=== PATIENT | female | born 1960 | race Caucasian/White ===

== ENCOUNTER 2019-12-07 07:16 | Emergency (ER) | payer BC, SELFPAY ==
[2019-12-07] VITALS (39 sets, daily range): BP systolic 134–155; BP diastolic 65–85; PULSE 51–80; RESP 11–31; TEMP 36.6; O2SAT 96–100
--- NOTE | 2019-12-07 07:35 | ED.ABDPAIN ---
HPI - Abdominal Pain General Chief Complaint: Abdominal Pain Stated Complaint: RUQ/back pain h/o gallbladder issues Time Seen by Provider: 12/07/19 07:26 History of Present Illness HPI narrative: RUQ pain since last night. Radiates to the back. Moderate intensity. Associated with nausea and loose stool. Started after eating a heavy meal. She has had similar symptoms in the past due to cholelithiasis going back to at least 2013. She was here in most recently in June 2019 for the same and has not followed up. At that time she was given zofran and toradol with improvement of her symptoms. Related Data Allergies Allergy/AdvReac Type Severity Reaction Status Date / Time Penicillins Allergy Unknown Rash Verified 12/07/19 07:24 venom-wasp Allergy Unknown Swelling Verified 12/07/19 07:24 Review of Systems Review of Systems: All systems reviewed & are unremarkable except as noted in HPI and below Constitutional: Constitutional: Denies chills and Denies fever(s) Cardiovascular: Cardiovascular: Denies chest pain Respiratory: Respiratory: Denies dyspnea Gastrointestinal: Gastrointestinal: Reports abdominal pain, Reports diarrhea and Reports nausea Genitourinary: Genitourinary: Denies hematuria and Denies dysuria Musculoskeletal: Musculoskeletal: Reports back pain PMFSH Family History Family History Mother Hypertension Family history of thyroid disease Sibling Hypertension Grandparent Family history of malignant neoplasm of breast Family history of pulmonary embolism Family history of malignant neoplasm of uterus Family history of dementia Family history of malignant neoplasm of breast in first degree relative Family history of heart disease in male family member before age 55 Father Hypertension Other Asthma Family history of arthritis Family history of cardiovascular disease Family history of lung cancer Social History Social History Smoking status: Former smoker Second hand tobacco smoke exposure: No Smoking end date: 07/10/87 Alcohol intake: current Gender identity (if verbalized by the patient): Female Exam Const: General: no acute distress and alert Nutritional Appearance: obese Orientation/consciousness: patient oriented x3 HENMT: Head: normal to inspection Resp: Effort & Inspection: normal respiratory effort Auscultation: clear to auscultation bilaterally Cardio: Rate: regular rate Rhythm: regular rhythm GI: Inspection: non-distended GI Palp: Yes Soft to palpation, Yes Tenderness to palpation present (GI) (minimal RUQ), No Guarding due to palpation present (GI) and No Rebound tenderness present Auscultation: normal bowel sounds Skin: General skin exam: normal color Neuro: General: patient oriented x3, moves all extremities, no focal motor deficits and CN's II-XI intact bilaterally Speech: normal speech Extrem: General: normal to inspection Course Vital Signs Vital signs: Vital Signs Temperature 36.6 C 12/07/19 07:21 Pulse Rate 63 12/07/19 07:21 Respiratory Rate 18 12/07/19 07:21 Blood Pressure 152/78 H 12/07/19 07:21 Pulse Oximetry 100 12/07/19 07:21 Temperature 36.6 C 12/07/19 07:21 Pulse Rate 51 L 12/07/19 09:31 Respiratory Rate 18 12/07/19 09:31 Blood Pressure 138/68 12/07/19 09:31 Pulse Oximetry 99 12/07/19 09:31 MDM - Abdominal Pain MDM Narrative Medical decision making narrative: minimally elevated WBC count. I do not suspect acute cholecystitis. Labs otherwise reassuring. Feeling better after toradol and zofran. Differential Diagnosis Differential diagnosis: Likely calculus of kidney, pancreatitis and other (biliary colic) Medical Records Attestation: I reviewed the patient's medical records. Lab Data Attestation: I reviewed the patient's lab results. Result diagrams: 12/07/19 07:39 12/06
--- NOTE | 2019-12-07 07:38 | PC.NURSE ---
Pt states since 0100 she has RUQ abd pain that radiates to her back. Pt states she is nauseated and took zofran ODT without relief. Pt states she has hx of gallstones. Pt states she took tylenol 500mg without relief. Pt restless due to pain. Pt has call light in reach.
[2019-12-07 07:49] LABS: Basophils Absolute Auto 0.1 K/mm3 (0.0-0.1); Basophils Percent Auto 0.5 % (0.2-1.2); Eosinophils Percent Auto 0.1 % (0-4.4); Hematocrit 41.5 % (37.0-47.0); Hemoglobin 14.3 g/dL (12.0-15.0); Immature Granulocyte Absolute 0.06 K/mm3 (0.00-0.031); Immature Granulocyte Percent A 0.6 % (0-0.5); Lymphocytes Absolute Auto 0.92 K/mm3 (0.9-3.2); Lymphocytes Percent Auto 8.6 % (18.3-44.2); Mean Corpuscular HGB Conc 34.5 g/dl (32-36); Mean Corpuscular Hemoglobin 30.4 pg (26-34); Mean Corpuscular Volume 88.3 fl (80-100); Mean Platelet Volume 9.4 fl (7.4-10.4); Monocytes Absolute Auto 0.3 K/mm3 (0.1-0.6); Monocytes Percent Auto 2.6 % (2.6-8.5); Neutrophils Absolute Auto 9.3 K/mm3 (1.3-6.7); Neutrophils Percent Auto 87.6 % (45.5-73.1); Platelet Count Result 246 k/mm3 (150-375); Red Cell Distribution Width 11.3 % (11.5-14.5); White Blood Count 10.7 K/mm3 (4.5-10.0)
[2019-12-07 08:02] LABS: Alanine Aminotransferase 13 U/L (4-35); Albumin Level 4.6 g/dL (3.5-5.1); Alkaline Phosphatase 90 U/L (38-126); Aspartate Amino Transferase 29 U/L (14-36); Bilirubin,Total 0.3 mg/dL (0.2-1.3); Blood Urea Nitrogen 11 mg/dL (7-17); Carbon Dioxide 30 mmol/L (22-30); Chloride 98 mmol/L (98-107); Estimated CRCL calculation 85 ml/min; Estimated Glomerular Filt Rate > 60; Glucose 131 mg/dL (65-105); Lipase 60 U/L (23-300); Potassium 3.7 mmol/L (3.4-5.0); Sodium 134 mmol/L (137-145)
[2019-12-07 08:20] LABS: Add Urine Microscopic? YES; Amorphous Sediment Urine Heavy; Appearance Urine Turbid (Clear); Bilirubin Urine Negative (Negative); Blood Urine Negative (Negative); Color Urine Yellow (Yellow); Glucose Urine UA Negative (Negative); Ketones Urine Negative (Negative); Leukocyte Esterase Ur Negative LEU/UL (Negative); Mucus Urine Heavy /lpf; Nitrate Urine Negative (Negative); Protein Urine Negative (Negative); Specific Grav Ur 1.025 (1.001-1.035); Urobilinogen Urine Negative mg/dL (<2.0)
[2019-12-07] MEDS: ONDANSETRON INJ 4 MG/2 ML VIAL IV PUSH (08:24)
[2019-12-07] MEDS: KETOROLAC 30 MG/ML VIAL (*BKC) IV PUSH (08:25)
== END 2019-12-07 09:53 | disposition home or self-care (01) ==
PROVIDERS: Emergency Provider Emergency Medicine; PCP Internal Medicine
DX: K80.50 Calculus of bile duct without cholangitis or cholecystitis without obstruction (principal); Z87.891 Personal history of nicotine dependence
CPT/HCPCS: 36415; 80053; 81001; 81025; 83690; 85025; 96374; 96375; 99284; J1885; J2405

== ENCOUNTER → 2020-01-02 08:48 | Outpatient (CLI) | payer BC, SELFPAY ==
--- NOTE | ~2020-01-02 | US_ITS ---
EXAMINATION: US right upper quadrant EXAM DATE: 01/02/2020 09:19 INDICATION: Right quadrant pain, history of gallstones. TECHNIQUE: Multiple grayscale and Doppler images of the abdomen right upper quadrant were obtained (b y a technologist who performed the scan) and subsequently reviewed. Comparison is made to prior exami nation from 06/09/2019. FINDINGS: The pancreatic head and body are normal in appearance. The pancreatic tail is not visualized. The l iver has normal echogenicity and contour. There are no focal liver lesions identified. There is no evidence of intrahepatic biliary duct dilation. Portal venous flow was seen in the hepatopedal, nor mal direction and has normal Doppler waveform. There is cystic right renal lesion measures 7.7 x 5.0 x 6.6 cm, several internal septations suspected. This had no suspicious characteristics on CT scan f rom last year. Common bile duct measures 5 mm, which is normal. The gallbladder wall is normal in thickness, with ex pected amount of distention. No sonographic evidence of pericholecystic fluid. There is cholelithia sis. Technologist performing exam reports patient did not demonstrate sonographic Trujillo's sign. P lease note that this sign is less reliable in patients who have received pain medication. IMPRESSION: 1. Cholelithiasis. 2. Right renal cystic lesion, likely benign. Reviewed, dictated and finalized at location [facility].
== END ==
PROVIDERS: PCP Internal Medicine; Visit Provider Internal Medicine Gastroenterology
DX: R10.11 Right upper quadrant pain (principal); K80.20 Calculus of gallbladder without cholecystitis without obstruction
CPT/HCPCS: 76705

== ENCOUNTER 2020-03-20 00:18 | Outpatient (CLI) | payer BC, SELFPAY ==
[2020-03-21 13:40] LABS: SARS-CoV-2 RNA PCR Negative
== END 2020-03-20 00:19 | disposition home or self-care (01) ==
LOC: ANHCOVIDDT 00:18
PROVIDERS: PCP Internal Medicine; Visit Provider Internal Medicine Gastroenterology
DX: Z01.812 Encounter for preprocedural laboratory examination (principal); Z20.828 Contact with and (suspected) exposure to other viral communicable diseases
CPT/HCPCS: 87635; C9803; U0003

== ENCOUNTER 2020-05-07 01:09 | Inpatient (IN) | payer BC, SELFPAY ==
[2020-05-07] VITALS (7 sets, daily range): BP systolic 114–166; BP diastolic 61–92; PULSE 60–80; RESP 14–18; TEMP 36.3–36.7; O2SAT 99–100; BMI 28.6
--- NOTE | ~2020-05-07 | CT_ITS ---
EXAMINATION: CT abdomen pelvis w con DATE: 05/07/2020 02:45 INDICATION: Right upper quadrant abdominal pain. Nausea, vomiting, diarrhea TECHNIQUE: Computed tomography (CT) of the abdomen and pelvis was performed with 100 cc Omnipaque 350 intravenous contrast. Automated exposure control and iterative reconstruction technique were employe d. Exam dose: 876.39 mGy-cm total exam DLP. COMPARISON: 01/02/2020 right upper quadrant abdominal ultrasound examination 02/18/2019 CT abdomen FINDINGS: The lung bases are clear. Normal heart size. No pericardial or pleural effusion. There are multiple hepatic and renal cysts, the largest hepatic cyst measuring up to 2.6 cm, the larg est renal cyst is situated on the right, measuring up to 5.3 cm. There is thickening of the gallbladder wall and mild pericholecystic fat stranding. There are numerou s gallstones. There is mild dilatation of the common bile duct up to 8 mm.. No solid space occupying mass lesion the liver is evident. The spleen, pancreas and adrenal glands ar e unremarkable. No solid renal space-occupying mass lesion is evident. No urinary tract calculus or h ydroureteronephrosis. Normal caliber of the abdominal aorta. No intraperitoneal or retroperitoneal or pelvic mass lesion or adenopathy or ascites. The uterus, adnexa and urinary bladder are unremarkable. No bowel obstruction, bowel wall thickening, pneumatosis or intraperitoneal free air. Normal appendix . Small fat-containing umbilical hernia. No suspicious osteolytic or osteoblastic lesions. There is moderate degenerative disc disease of the lumbar and lower cervical spine, most prominent at L4-5 and particularly L5-S1. IMPRESSION: Acute cholecystitis and cholelithiasis Hepatic and renal cysts Reviewed, dictated and finalized at Location [facility]. Reviewed, dictated and finalized at location A.
--- NOTE | ~2020-05-07 | XR_ITS ---
XR chest 2V DATE: 05/07/2020 03:04 INDICATION: Chest pain, epigastric pain TECHNIQUE: PA and lateral views COMPARISON: 11/06/2015 PA and lateral chest FINDINGS: Normal heart size. No hilar or mediastinal enlargement. No pulmonary infiltrate or consolid ation, pleural effusion or pulmonary vascular congestion or pneumothorax. IMPRESSION: No active cardiopulmonary disease Reviewed, dictated and finalized at location A.
--- NOTE | 2020-05-07 01:14 | ED.ABDPAIN ---
HPI - Abdominal Pain General Chief Complaint: Abdominal Pain Stated Complaint: gallbladder problems Time Seen by Provider: 05/07/20 01:12 Source: patient Mode of arrival: ambulatory Limitations: no limitations History of Present Illness HPI narrative: Patient is a 59-year-old female who presents for evaluation of abdominal pain. Patient reports a 4-day history of worsening, constant epigastric and right upper quadrant abdominal pain. Patient's pain radiates to her back. She reports associated nausea without vomiting. She denies fever or chills. She denies any upper chest pain, ulnar pain, jaw pain or diaphoresis. No shortness of breath. Patient reports that intermittently she has had a fluttering in her chest. She denies any current fluttery type sensation. She denies lower abdominal pain, dysuria or hematuria. Patient states that she was evaluated approximately 1 month ago at [facility] for gallbladder wall thickening, placed on IV antibiotics, but never had surgery. She has had numerous gallbladder attacks and has scheduled a consultation with a [facility] general surgeon for Monday, 05/11. Otherwise she has not established with any surgeons at this point. Pt states symptoms are worse with oral intake, but have improved since adhering to a low fat diet. However pain over past four days has been so severe that she chose to be evaluated. Related Data Allergies Allergy/AdvReac Type Severity Reaction Status Date / Time Penicillins Allergy Unknown Rash Verified 04/16/20 11:18 venom-wasp Allergy Unknown Swelling Verified 04/16/20 11:18 Review of Systems Review of Systems: Narrative: CONSTITUTIONAL: Denies fever, chills, or sweats. CARDIOVASCULAR: Reports lower chest pain, intermittent fluttering, none currently RESPIRATORY: Denies cough or dyspnea. GASTROINTESTINAL: Reports upper abdominal pain, nausea without vomiting GENITOURINARY: Denies dysuria or hematuria. SKIN: Denies rash or itching. MUSCULOSKELETAL: Denies back pain, joint pain, or myalgia. NEUROLOGIC: Denies headache, numbness, or weakness. [facility] Past Medical History Medical History (Updated 05/07/20 @ 04:09 by Filomena Oglesby MD) Gastroesophageal reflux disease Hepatic steatosis History of asthma History of depression History of hypertension Hx of cholelithiasis Hypercholesterolemia Non-compliance with treatment Sciatica associated with disorder of lumbar spine Surgical History Surgical History History of section History of tonsillectomy Family History Family History Mother Hypertension Family history of thyroid disease Sibling Hypertension Grandparent Family history of malignant neoplasm of breast Family history of pulmonary embolism Family history of malignant neoplasm of uterus Family history of dementia Family history of malignant neoplasm of breast in first degree relative Family history of heart disease in male family member before age 55 Father Hypertension Other Asthma Family history of arthritis Family history of cardiovascular disease Family history of lung cancer Social History Social History Smoking status: Never smoker Tobacco type: cigarettes Second hand tobacco smoke exposure: No Smoking end date: 07/10/87 Alcohol intake: current Substance use: current Substance use type: other Other substance usage details: CBD Chews Additional living arrangements comments: , Daughter Gender identity (if verbalized by the patient): Female Spiritual care concerns: No Exam Narrative: Exam Narrative: GENERAL: Awake, alert, conversant HEAD: Normocephalic, atraumatic. EYES: PERRLA and EOMI. ENT: Nares clear, no rhinorrhea or epistaxis. Mucous membranes moist. NECK: Supple. CHEST: No respiratory distress, breathing jewell
--- NOTE | 2020-05-07 01:50 | ECG_ITS ---
Measurements Intervals [place] Rate: 77 P: 58 AR: 170 QRS: 59 QRSD: 89 T: 44 QT: 386 QTc: 438 Interpretive Statements SINUS RHYTHM BORDERLINE ST ABNORMALITY- ANTERIOR LEADS BASELINE WANDER- V2-V3 BORDERLINE ECG Electronically Signed On 05-07-2020 7:13:33 CDT by Clinton Kinsey D.O.
[2020-05-07] MEDS: SODIUM CHLORIDE 0.9% IV 2,000 ML 999 ML IV CONT (02:06)
[2020-05-07] MEDS: ONDANSETRON INJ 4 MG/2 ML VIAL IV PUSH (02:08)
[2020-05-07] MEDS: MORPHINE SULFATE (*CRX) 4 MG/ML INJ IV PUSH ×3 (02:09→06:34)
[2020-05-07] MEDS: FAMOTIDINE 20 MG/2 ML VIAL IV PUSH (02:13)
[2020-05-07 02:30] LABS: Alanine Aminotransferase 15 U/L (4-35); Albumin Level 4.8 g/dL (3.5-5.1); Alkaline Phosphatase 79 U/L (38-126); Anion Gap 8 mmol/L (8-16); Aspartate Amino Transferase 33 U/L (14-36); Bilirubin,Total 0.8 mg/dL (0.2-1.3); Blood Urea Nitrogen 8 mg/dL (7-17); Calcium 10.6 mg/dL (8.4-10.2); Carbon Dioxide 33 mmol/L (22-30); Chloride 95 mmol/L (98-107); Estimated CRCL calculation 83 ml/min; Estimated Glomerular Filt Rate > 60; Glucose 105 mg/dL (65-105); Lipase 40 U/L (23-300); Potassium 3.5 mmol/L (3.4-5.0); Sodium 136 mmol/L (137-145)
[2020-05-07 02:37] LABS: INR 1.1; Partial Thromboplastin Time 28.4 SECONDS (22.3-36.8); Prothrombin Time 13.5 Seconds (11.1-14.7)
[2020-05-07 02:39] LABS: Basophils Percent Auto 0.5 % (0.2-1.2); Eosinophils Absolute Auto 0.2 K/mm3 (0-0.3); Eosinophils Percent Auto 2.1 % (0-4.4); Hematocrit 40.3 % (37.0-47.0); Hemoglobin 14.1 g/dL (12.0-15.0); Immature Granulocyte Absolute 0.02 K/mm3 (0.00-0.031); Immature Granulocyte Percent A 0.2 % (0-0.5); Lymphocytes Absolute Auto 1.43 K/mm3 (0.9-3.2); Lymphocytes Percent Auto 17.3 % (18.3-44.2); Mean Corpuscular Hemoglobin 30.7 pg (26-34); Mean Corpuscular Volume 87.8 fl (80-100); Mean Platelet Volume 9.6 fl (7.4-10.4); Monocytes Absolute Auto 0.6 K/mm3 (0.1-0.6); Monocytes Percent Auto 7.3 % (2.6-8.5); Neutrophils Percent Auto 72.6 % (45.5-73.1); Platelet Count Result 209 k/mm3 (150-375); Red Blood Count 4.59 M/mm3 (4.2-5.4); Red Cell Distribution Width 11.4 % (11.5-14.5); White Blood Count 8.3 K/mm3 (4.5-10.0)
[2020-05-07 02:42] LABS: Troponin I < 0.012 ng/mL (0.000-0.034)
[2020-05-07] MEDS: MAG HYDROX/AL HYDROX/SIMETH 30 ML UDC PO (03:11)
[2020-05-07] MEDS: DICYCLOMINE HCL INJ 20 MG/2 ML VIAL IM (03:11)
[2020-05-07 03:22] LABS: Add Urine Microscopic? YES; Appearance Urine Clear (Clear); Bilirubin Urine Negative (Negative); Blood Urine Negative (Negative); Color Urine Colorless (Yellow); Glucose Urine UA Negative (Negative); Ketones Urine Trace mg/dL (Negative); Leukocyte Esterase Ur Negative LEU/UL (Negative); Nitrate Urine Negative (Negative); Protein Urine Negative (Negative); Specific Grav Ur 1.015 (1.001-1.035); Squamous Epithelial Cell Urine Rare /hpf (Few); Urobilinogen Urine Negative mg/dL (<2.0); WBC Urine 0-3 /hpf
[2020-05-07] MEDS: metroNIDAZOLE 500 MG/ISO 100ML 500 MG/100 ML BAG 100 MG IVPB ×3 (04:03→17:10)
--- NOTE | 2020-05-07 05:45 | ADMGEN ---
This patient, Angela Khan, was admitted to Medical Room 340-01. Patient/family oriented to hospital policies and general routines including ID bracelet, bed and alarms, visiting hours, pain management, procedures, bathroom and other care routines, personal items, smoking policy, room service/diet, and visiting hours. Information on how to activate the Rapid Response Team has been discussed. Patient/Family are encouraged to report perceived risks to care and to ask questions if they do not understand what they are told or what they should do.
[2020-05-07] MEDS: SODIUM CHLORIDE 0.9% IV 1,000 ML 125 ML IV CONT ×2 (06:35→15:41)
--- NOTE | 2020-05-07 11:12 | PM.IMHP ---
H&P: HPI History of Present Illness Date/Time: 05/07/20 11:12 Chief complaint: Acute Cholecystitis Narrative: Angela Khan is a 59 year old white female who presented early this AM to the [facility] ED for evaluation of abdominal pain. Patient reports a 4-day history of worsening, constant epigastric and right upper quadrant abdominal pain. Patient's pain radiates to her back. She reports associated nausea without vomiting. She denies fever or chills. She denies any upper chest pain, ulnar pain, jaw pain or diaphoresis. No shortness of breath. Patient reports that intermittently she has had a fluttering in her chest. She denies any current fluttery type sensation. She denies lower abdominal pain, dysuria or hematuria. Patient states that she was evaluated approximately 1 month ago at [facility] for gallbladder wall thickening, placed on IV antibiotics, but never had surgery. She has had numerous gallbladder attacks and has scheduled a consultation with a [facility] general surgeon for Monday, 05/11. Otherwise she has not established with any surgeons at this point. Pt states symptoms are worse with oral intake, but have improved since adhering to a low fat diet. However, pain over past four days has been so severe at times that she chose to be evaluated. Further workup in the emergency room revealed that the patient had fairly normal labs but CT scan of the abdomen and pelvis revealed pericholecystic fluid and thickening of the gallbladder wall. Review of Systems Constitutional: Constitutional: Reports as per HPI and Denies headache(s) Eyes: Eyes: Denies loss of vision and Denies eye pain ENT: Reports Normal hearing present, Denies change in voice, Denies dizziness and Denies headache(s) Cardiovascular: Cardiovascular: Denies chest pain and Denies dyspnea Respiratory: Respiratory: Denies dyspnea and Denies wheezing Gastrointestinal: Gastrointestinal: Reports abdominal pain Musculoskeletal: Musculoskeletal: Denies back pain and Denies arthralgias Neurologic: Reports Normal hearing present, Denies dizziness, Denies headache(s), Denies loss of vision and Denies memory loss Psychiatric: Psychiatric: Denies memory loss and Denies panic attacks Endocrine: Endocrine: Reports no additional endocrine complaints Hematologic/Lymphatic: Hematologic/Lymphatic: Reports no additional hematologic/lymphatic complaints Allergic/Immunologic: Allergic/Immunologic: Denies wheezing PMF Past Medical History Medical History (Updated 05/07/20 @ 11:18 by Perry Artis MD) Gastroesophageal reflux disease Hepatic steatosis History of asthma History of depression History of hypertension Hx of cholelithiasis (Unknown) Hypercholesterolemia Non-compliance with treatment Sciatica associated with disorder of lumbar spine Surgical History Surgical History History of section History of tonsillectomy Family History Family History Mother Family history of thyroid disease Hypertension Sibling Hypertension Grandparent Family history of heart disease in male family member before age 55 Family history of malignant neoplasm of breast Family history of malignant neoplasm of breast in first degree relative Family history of malignant neoplasm of uterus Family history of dementia Family history of pulmonary embolism Father Hypertension Other Asthma Family history of arthritis Family history of cardiovascular disease Social History Social History Smoking status: Never smoker Tobacco type: cigarettes Second hand tobacco smoke exposure: No Smoking end date: 07/10/87 Alcohol intake: never Substance use: never Substance use type: other Other substance usage details: CBD Chews Additional living arrangements comments: , D
[2020-05-07] MEDS: atenoloL 25 MG TABLET PO (11:20)
--- NOTE | 2020-05-07 14:49 | PC.NURSE ---
On 05/07/20, the student, [ Ana Ervin [facility] skilled nursing professional], provided care and completed Particle documentation on this patient. I have reviewed the student's documentation and agree with the findings.
[2020-05-08] VITALS (12 sets, daily range): BP systolic 141–177; BP diastolic 60–79; PULSE 54–84; RESP 16–18; TEMP 35.9–36.7; O2SAT 98–100
[2020-05-08] MEDS: SODIUM CHLORIDE 0.9% IV 1,000 ML 100 ML IV CONT (04:15)
[2020-05-08 05:52] LABS: Basophils Percent Auto 0.8 % (0.2-1.2); Eosinophils Absolute Auto 0.1 K/mm3 (0-0.3); Eosinophils Percent Auto 2.6 % (0-4.4); Hematocrit 34.1 % (37.0-47.0); Hemoglobin 11.8 g/dL (12.0-15.0); Immature Granulocyte Absolute 0.02 K/mm3 (0.00-0.031); Immature Granulocyte Percent A 0.4 % (0-0.5); Lymphocytes Absolute Auto 1.12 K/mm3 (0.9-3.2); Lymphocytes Percent Auto 22.8 % (18.3-44.2); Mean Corpuscular HGB Conc 34.6 g/dl (32-36); Mean Corpuscular Hemoglobin 30.9 pg (26-34); Mean Corpuscular Volume 89.3 fl (80-100); Mean Platelet Volume 9.6 fl (7.4-10.4); Monocytes Absolute Auto 0.5 K/mm3 (0.1-0.6); Monocytes Percent Auto 10.8 % (2.6-8.5); Neutrophils Absolute Auto 3.1 K/mm3 (1.3-6.7); Neutrophils Percent Auto 62.6 % (45.5-73.1); Platelet Count Result 181 k/mm3 (150-375); Red Blood Count 3.82 M/mm3 (4.2-5.4); Red Cell Distribution Width 11.7 % (11.5-14.5); White Blood Count 4.9 K/mm3 (4.5-10.0)
[2020-05-08 06:00] LABS: Alanine Aminotransferase 10 U/L (4-35); Albumin Level 3.6 g/dL (3.5-5.1); Alkaline Phosphatase 67 U/L (38-126); Anion Gap 4 mmol/L (8-16); Aspartate Amino Transferase 22 U/L (14-36); Bilirubin,Total 0.5 mg/dL (0.2-1.3); Blood Urea Nitrogen 4 mg/dL (7-17); Calcium 9.4 mg/dL (8.4-10.2); Carbon Dioxide 31 mmol/L (22-30); Chloride 104 mmol/L (98-107); Estimated CRCL calculation 96 ml/min; Estimated Glomerular Filt Rate > 60; Glucose 102 mg/dL (65-105); Lipase 44 U/L (23-300); Potassium 3.4 mmol/L (3.4-5.0); Sodium 139 mmol/L (137-145)
[2020-05-08] MEDS: atenoloL 25 MG TABLET PO (09:03)
--- NOTE | 2020-05-08 10:46 | WPDHPUPDATE1 ---
History and Physical Update Update Date/Time: 05/08/20 10:46 History and Physical has been reviewed, including an updated exam of the patient. There are NO changes in the patient's condition. Risks, benefits, and alternatives have been discussed and questions answered. Patient agrees to proceed with procedure.
--- NOTE | 2020-05-08 11:48 | PC.NURSE ---
Pt to OR per bed. IV locked per surgery RN.
[2020-05-08] MEDS: LACTATED RINGERS 1,000 ML 30 ML IV CONT ×2 (12:13→15:56)
--- NOTE | 2020-05-08 12:19 | WPDANESEPPF ---
Anes - Initial Pre Proc Eval Procedure: Operation Date: 05/08/20 13:00 Proposed Procedures p Laparoscopic Cholecystectomy with Possible Intraoperative Cholangiogram - Perry Artis MD Date/Time: 05/08/20 12:20 Surgeon: Perry Artis MD Pre Op Diagnosis: Acute Cholecystitis Patient Data Age: 59 Gender: F Height: 1.7 m Weight: 83 kg Last Vital Signs Temp 36.6 C 05/08/20 04:14 Pulse 66 05/08/20 09:03 Resp 16 05/08/20 04:14 BP 152/72 H 05/08/20 04:14 Pulse Ox 98 05/08/20 04:14 Allergies Allergy/AdvReac Type Severity Reaction Status Date / Time Penicillins Allergy Unknown Rash Verified 05/07/20 16:18 venom-wasp Allergy Unknown Swelling Verified 05/07/20 16:18 Home Medications Medication Instructions Recorded Confirmed Type atenolol 25 mg tablet 25 mg PO DAILY #90 tablet 11/25/19 05/07/20 Rx triamterene 37.5 0.5 tablet PO QAM #60 tablet 11/25/19 05/07/20 Rx mg-hydrochlorothiazide 25 mg tablet Laboratory Tests 05/08/20 05/08/20 05/08/20 05:30 05:30 06:41 WBC 4.9 K/mm3 K/mm3 (4.5-10.0) RBC 3.82 M/mm3 L M/mm3 (4.2-5.4) Hgb 11.8 g/dL L g/dL (12.0-15.0) Hct 34.1 % L % (37.0-47.0) MCV 89.3 fl fl (80-100) MCH 30.9 pg pg (26-34) MCHC 34.6 g/dl g/dl (32-36) RDW 11.7 % % (11.5-14.5) Plt Count 181 k/mm3 k/mm3 (150-375) MPV 9.6 fl fl (7.4-10.4) Immature Gran % (Auto) 0.4 % % (0-0.5) Neut % (Auto) 62.6 % % (45.5-73.1) Lymph % (Auto) 22.8 % % (18.3-44.2) Meigs % (Auto) 10.8 % H % (2.6-8.5) Eos % (Auto) 2.6 % % (0-4.4) Baso % (Auto) 0.8 % % (0.2-1.2) Lymph # (Auto) 1.12 K/mm3 K/mm3 (0.9-3.2) Meigs # (Auto) 0.5 K/mm3 K/mm3 (0.1-0.6) Eos # (Auto) 0.1 K/mm3 K/mm3 (0-0.3) Baso # (Auto) 0.0 K/mm3 K/mm3 (0.0-0.1) Abs Immat Gran (auto) 0.02 K/mm3 K/mm3 (0.00-0.031) Absolute Neuts (auto) 3.1 K/mm3 K/mm3 (1.3-6.7) Absolute Nucleated RBC 0.0 K/mm3 K/mm3 (0.0-0.012) Nucleated RBC % 0.0 % % (0.0-0.2) Sodium 139 mmol/L mmol/L (137-145) Potassium 3.4 mmol/L mmol/L (3.4-5.0) Chloride 104 mmol/L mmol/L (98-107) Carbon Dioxide 31 mmol/L H mmol/L (22-30) Anion Gap 4 mmol/L L mmol/L (8-16) BUN 4 mg/dL L mg/dL (7-17) Creatinine 0.60 mg/dL L mg/dL (0.7-1.0) Estim Creat Clear Calc 96 ml/min ml/min Estimated GFR > 60 (59 - ) Glucose 102 mg/dL mg/dL (65-105) Calcium 9.4 mg/dL mg/dL (8.4-10.2) Total Bilirubin 0.5 mg/dL mg/dL (0.2-1.3) AST 22 U/L U/L (14-36) ALT 10 U/L U/L (4-35) Alkaline Phosphatase 67 U/L U/L (38-126) Total Protein 6.0 g/dL L g/dL (6.3-8.2) Albumin 3.6 g/dL g/dL (3.5-5.1) Lipase 44 U/L U/L (23-300) Blood Type O Positive Antibody Screen Negative Patient hx anesthesia problems: none Family hx anesthesia problems: none PMFSH Past Medical History Medical History (Updated 05/07/20 @ 11:18 by Perry Artis MD) Gastroesophageal reflux disease Hepatic steatosis History of asthma History of depression History of hypertension Hx of cholelithiasis (Unknown) Hypercholesterolemia Non-compliance with treatment Sciatica associated with disorder of lumbar spine Surgical History Surgical History History of section History of tonsillectomy Family History Family History Mother Family history of thyroid disease Hypertension Sibling Hypertension Grandparent Family history of heart disease in male family member before age 55 Family history of malignan
[2020-05-08] MEDS: BUPIVACAINE/EPINEPHRINE 0.5% 10 ML VIAL 30 ML INFILTRATE (14:02)
--- NOTE | 2020-05-08 14:53 | SUR.OPER ---
patient voided in pre op prior to or Dr Artis aware.
--- NOTE | 2020-05-08 15:53 | PM.PROC ---
Procedure Note - Detailed Date of procedure: 05/08/20 Pre-op diagnosis: Acute Cholecystitis Acute on Chronic Cholecystitis with Cholelithiasis Post-op diagnosis: same Procedure performed: Laparoscopic Cholecystectomy Repair of small umbilical hernia. Description of procedure: Patient was seen preoperatively in the holding area and risks, benefits and alternatives confirmed. Patient was taken to the operating room and general anesthesia was induced. A time out was then preformed with the surgery team confirming patient and site of surgery. The abdomen was prepped and draped in the usual sterile fashion. Incision was made just below the umbilicus with an 11 blade knife. I placed 2 stay sutures of O- Vicryl on either side of the mid-line fascia beneath the umbilicus and was then able to slide in the Ruffin cannula through the fascial defect into the peritoneum. First under low flow and then under high flow the abdomen was insufflated with carbon dioxide never exceeding a pressure of 14. Three 5 mm trocars were then introduced under direct vision. The following trocars were introduced under direct vision: a 5 mm in the epigastrium and two 5 mm trocars along the right costal margin laterally in the subcostal area. There was significant omental adhesions to the underside of the gallbladder. These were taken down with blunt and sharp dissection using some Bovie cautery for hemostasis. This dissection exposed the fat at the triangle of Chalot. Because the gallbladder was very thickened distended and we could not grasp it we open the long needle aspirating trocar. I then put this through the upper midline port and aspirated 20 cc of bile from the gallbladder into a syringe and passed off the field for C& S. Suction was connected to this and once the gallbladder somewhat decompressed and we could grasp it I removed the needle and my assistant customer service manager grasped the gallbladder at the site where we had punctured the hole for the aspiration. This was left in place until we placed the gallbladder in the endobag for removal. I then carefully used the L-shaped cautery and the [place] dissector to dissect out the triangle of Calot. I then was able to dissect out both the cystic duct and cystic artery and identify a window of safety. The gall bladder was grasped and the cystic duct and artery were dissected free and clipped with an 5 mm endo-clip laborer wrecking and salvaging. The cystic duct and artery were clipped with use of 2 clips on the patient's side 1 on the gallbladder side utilizing a 5 mm endoclip-laborer wrecking and salvaging. The cystic duct was then transected. The cystic artery was also transected at this point. The gall bladder was removed using electrocautery and then removed from the abdomen using an endobag. . In order to get the large stone out of the abdomen within the gallbladder I did make the fascial defect slightly larger with Meeks scissors. The trocars were removed visualizing hemostasis and the remaining gas evacuated. The large trocar site at the umbilicus was closed with use of the 2 stay sutures of 0 Vicryl mentioned above and also 3 figure of 8 O-Vicryl sutures. The 2 stay sutures mentioned above on either side of the fascia were also tied together to help approximate this midline fascia. Further local anesthetic was placed into each incision for postop pain control. The skin incisions were closed with subcuticular suture of 4-0 Monocryl. Surgical glue then was applied to all the incisions. Patient tolerated the procedure well was taken to the recovery room in good condition. Anesthesia: GETA Surgeon: Perry Artis MD Implementation Director: Reece VALDOVINOS, OR medical assistant ob gyn Estimated blood loss (mL): 35 Drains: No Packing: No Pathology: yes (Gallbladder) Complications: No immediate complications Condition: stable Disposition: PACU Findings: The gallbladder was whitish in color and thick and distended. Because we could not grasp it at the beginning of the case I did aspirated and we sent 20 cc o
[2020-05-08] MEDS: ONDANSETRON INJ 4 MG/2 ML VIAL IV PUSH (16:08)
[2020-05-08] MEDS: diphenhydrAMINE HCl INJ 50 MG/ML VIAL 25 MG IV PUSH (16:22)
[2020-05-08] MEDS: SCOPOLAMINE 1.5 MG PATCH TRANSDERM (16:25)
--- NOTE | 2020-05-08 17:15 | PC.NURSE ---
Pt returned from OR per bed. Report received from ARUNA Barney.
[2020-05-08] MEDS: SENNA/DOCUSATE SODIUM TABLET 2 TAB PO (22:58)
[2020-05-09 00:09] VITALS: BP 137/68; PULSE 79; RESP 14; TEMP 36.1; O2SAT 97
[2020-05-09] MEDS: HYDROcodone/acetaminophen (*CRX) 7.5-325 MG TABLET 1 TAB PO (02:33)
[2020-05-09 05:21] VITALS: BP 131/69; PULSE 58; RESP 16; TEMP 36.4; O2SAT 97
[2020-05-09 05:46] LABS: Hematocrit 33.7 % (37.0-47.0); Hemoglobin 11.5 g/dL (12.0-15.0); Mean Corpuscular HGB Conc 34.1 g/dl (32-36); Mean Corpuscular Volume 90.8 fl (80-100); Mean Platelet Volume 9.4 fl (7.4-10.4); Platelet Count Result 183 k/mm3 (150-375); Red Blood Count 3.71 M/mm3 (4.2-5.4); Red Cell Distribution Width 11.8 % (11.5-14.5)
[2020-05-09 06:03] LABS: Alanine Aminotransferase 45 U/L (4-35); Albumin Level 3.4 g/dL (3.5-5.1); Alkaline Phosphatase 58 U/L (38-126); Anion Gap 7 mmol/L (8-16); Aspartate Amino Transferase 106 U/L (14-36); Bilirubin,Total 0.4 mg/dL (0.2-1.3); Blood Urea Nitrogen 6 mg/dL (7-17); Calcium 9.2 mg/dL (8.4-10.2); Carbon Dioxide 32 mmol/L (22-30); Chloride 101 mmol/L (98-107); Estimated CRCL calculation 74 ml/min; Estimated Glomerular Filt Rate > 60; Glucose 96 mg/dL (65-105); Potassium 3.3 mmol/L (3.4-5.0); Sodium 140 mmol/L (137-145)
--- NOTE | 2020-05-09 07:31 | PM.DS ---
DS: Admitting Diagnosis Admitting Diagnosis Admitting Diagnosis: Acute Cholecystitis Umbilical hernia DS: Discharge Diagnosis Discharge Diagnosis (1) Cholelithiasis and acute cholecystitis with obstruction: Code(s): K80.01 - Calculus of gallbladder with acute cholecystitis with obstruction Status: Acute Assessment and Plan: Patient underwent laparoscopic cholecystectomy on 05/08/[address] Artis. Found to have acute cholecystitis with gallstones. (2) Umbilical hernia without mention of obstruction or gangrene: Code(s): K42.9 - Umbilical hernia without obstruction or gangrene Status: Chronic Assessment and Plan: Repaired at the time of laparoscopic cholecystectomy. No mesh needed. (3) Essential hypertension: Onset Date: Unknown Code(s): I10 - Essential (primary) hypertension Status: Chronic (4) Sciatica associated with disorder of lumbar spine: Code(s): M53.86 - Other specified dorsopathies, lumbar region Status: Chronic (5) Hypercholesterolemia: Code(s): E78.00 - Pure hypercholesterolemia, unspecified Status: Chronic DS: Summary Time Spent with Patient Time attestation: Total time spent providing and/or coordinating discharge services: Patient is a 59-year-old woman with who had had some episodes of epigastric and right upper quadrant pain and had been to the emergency room in [place]. Findings were nonspecific. She presented to our emergency room on 05/07/2020. She had severe epigastric and right upper quadrant pain that radiated through to her back. She was afebrile with normal white count. Liver enzymes were negative. CT scan did show acute cholecystitis with gallstones. She was admitted by Dr. Artis who also noticed a small umbilical hernia. She was taken to surgery on 05/08/2020 and underwent laparoscopic cholecystectomy with repair of the umbilical hernia. She was observed overnight and continued on IV antibiotics. She is discharged today in good condition on oral antibiotics. Exam GI: Inspection: non-distended and incision (All incisions healing well) GI Palp: Yes Soft to palpation, Yes Tenderness to palpation present (GI), No Guarding due to palpation present (GI), No Palpable mass present and No Rebound tenderness present Auscultation: normal bowel sounds DS: Data Data Completed and Pending Pending studies at discharge: Pending at discharge 05/08/20 14:52 Surgical [PTH] Routine Labs on day of discharge: Labs from last 24 hours 05/09/20 05/09/20 05/08/20 05:14 05:14 06:41 WBC 8.0 RBC 3.71 L Hgb 11.5 L Hct 33.7 L MCV 90.8 MCH 31.0 MCHC 34.1 RDW 11.8 Plt Count 183 MPV 9.4 Sodium 140 Potassium 3.3 L Chloride 101 Carbon Dioxide 32 H Anion Gap 7 L BUN 6 L Creatinine 0.80 Estim Creat Clear Calc 74 Estimated GFR > 60 Glucose 96 Calcium 9.2 Total Bilirubin 0.4 AST 106 H ALT 45 H Alkaline Phosphatase 58 Total Protein 6.0 L Albumin 3.4 L Blood Type O Positive Antibody Screen Negative Discharge Plan Discharge Attending physician on discharge: Perry Artis Discharging Clinician: Sandip Small Anticipated Discharge Date/Time: 05/09/20 07:43 Patient Disposition: Home, Self-Care Activity: may shower, no straining and as tolerated Diet: as tolerated and low fat Wound Care Instructions: incision open to air Discharge Instructions: Remove the Scopolamine patch that was placed behind your ear in 72 hours or less. Wash your hands after touching. 1. May shower the day after surgery over incisions. 2. Call office for: -Wound increasingly painful or bleeding -Vomiting -Fever of greater than 101 degrees 3. Expect some blood on dressing and old blood on skin. 4. If no bowel movement for three days, take 1 oz. (30 ml) Milk of Magnesia, if no results, take Fleets enema. 5. No hea
[2020-05-09 08:00] VITALS: PULSE 58; RESP 16; O2SAT 98
[2020-05-09 08:05] VITALS: O2SAT 98
[2020-05-09 09:10] VITALS: PULSE 58
[2020-05-09] MEDS: atenoloL 25 MG TABLET PO (09:10)
--- NOTE | 2020-05-09 09:38 | WPDANESPN ---
Anes - Prog Note Post-Op Date/Time: 05/09/20 09:38 Cardiovascular status: normal Respiratory status: normal Airway patency: baseline Mental status: baseline Post-Op hydration status: normal Vital Signs: Last Vital Signs Temp 36.4 C L 05/09/20 05:21 Pulse 58 L 05/09/20 09:10 Resp 16 05/09/20 05:21 BP 131/69 05/09/20 05:21 Pulse Ox 98 05/09/20 08:05 Pain Score (VAS): 0/0 I/O: Intake & Output 05/08/20 05/09/20 05/09/20 23:59 07:59 15:59 Intake Total 932 550 120 Output Total 900 600 Balance 32 -50 120 Laboratory Tests 05/09/20 05:14 05/09/20 05:14 05/09/20 05/09/20 05:14 05:14 WBC 8.0 RBC 3.71 L Hgb 11.5 L Hct 33.7 L MCV 90.8 MCH 31.0 MCHC 34.1 RDW 11.8 Plt Count 183 MPV 9.4 Sodium 140 Potassium 3.3 L Chloride 101 Carbon Dioxide 32 H Anion Gap 7 L BUN 6 L Creatinine 0.80 Estim Creat Clear Calc 74 Estimated GFR > 60 Glucose 96 Calcium 9.2 Total Bilirubin 0.4 AST 106 H ALT 45 H Alkaline Phosphatase 58 Total Protein 6.0 L Albumin 3.4 L Post-procedural complaints: none Patient Feedback: Patient satisfied with anesthetic care.
[2020-05-09] MEDS: ONDANSETRON INJ 4 MG/2 ML VIAL IV PUSH (12:01)
[2020-05-09 12:39] VITALS: BP 132/73; PULSE 69; RESP 16; TEMP 36.7; O2SAT 98
== END 2020-05-09 15:00 | disposition home or self-care (01) | DRG 419 ==
LOC: ANHED 03:51 → ANH3MED 08:09
PROVIDERS: Admitting Provider Surgery; Emergency Provider Emergency Medicine; PCP Internal Medicine; Visit Provider Surgery
PROC: 0FT44ZZ Resection of Gallbladder, Percutaneous Endoscopic Approach (ICD-10-PCS; CPT 47562; principal; 2020-05-08 13:00)
DX: K80.12 Calculus of gallbladder with acute and chronic cholecystitis without obstruction (principal); K42.9 Umbilical hernia without obstruction or gangrene; I10 Essential (primary) hypertension; M53.86 Other specified dorsopathies, lumbar region; E78.00 Pure hypercholesterolemia, unspecified; K21.9 Gastro-esophageal reflux disease without esophagitis; G47.33 Obstructive sleep apnea (adult) (pediatric); E55.9 Vitamin D deficiency, unspecified; Z28.21 Immunization not carried out because of patient refusal; Z87.19 Personal history of other diseases of the digestive system; Z88.0 Allergy status to penicillin; Z79.899 Other long term (current) drug therapy
CPT/HCPCS: 36415; 71046; 74177; 80053; 81001; 83690; 84484; 85025; 85027; 85610; 85730; 86850; 86900; 86901; 87070; 87075; 87205; 88304; 93005; 96361; 96365; 96366; 96367; 96372; 96375; 96376; 99285; A9270; G0378; J0131; J0500; J1100; J1200; J1956; J2250; J2270; J2370; J2405; J2704; J2710; J3010; J7030; J7120; Q9967

== ENCOUNTER 2020-11-13 12:41 | Outpatient (CLI) | payer BC, SELFPAY ==
--- NOTE | ~2020-11-13 | MM_ITS ---
EXAMINATION: MM diagnostic luís BI w deric HISTORY: Left axillary pain TECHNIQUE: Additional 3-D tomosynthesis images of the breasts were performed and synthetic 2-D images were generated. CAD analysis was submitted and interpreted. COMPARISON: Comparison to multiple prior studies sequentially, with oldest reviewed study dated 11/2010. BREAST PARENCHYMAL COMPOSITION: Breast composition is almost entirely fatty. FINDINGS: There are no suspicious masses, calcifications or architectural distortion in either breast to suggest malignancy. IMPRESSION: 1. No evidence for malignancy in either breast. 2. Routine yearly screening mammogram and regular clinical breast examination are recommended. BI-RADS Category 1: Negative Reviewed, dictated and finalized at location A. IMPRESSION: 1. No evidence for malignancy in either breast. 2. Routine yearly screening mammogram and regular clinical breast examination a re recommended. BI-RADS Category 1: Negative
== END 2020-11-13 12:42 | disposition home or self-care (01) ==
LOC: ANHIMG 12:44
PROVIDERS: PCP Internal Medicine; Visit Provider Advanced Practice Midwife
DX: N64.4 Mastodynia (principal)
CPT/HCPCS: 77062; 77066; G0279

== ENCOUNTER → 2021-02-12 07:23 | Outpatient (CLI) | payer BC, SELFPAY ==
[2021-02-13 21:29] LABS: SARS-CoV-2 RNA PCR Negative
== END ==
PROVIDERS: PCP Internal Medicine; Visit Provider Internal Medicine
DX: Z20.822 Contact with and (suspected) exposure to COVID-19 (principal)
CPT/HCPCS: C9803; U0003; U0005

== ENCOUNTER → 2021-03-19 14:15 | Outpatient (CLI) | payer BC, SELFPAY ==
--- NOTE | ~2021-03-19 | US_ITS ---
US retroperitoneal comp 03/19/2021 14:31 Procedure: Realtime transabdominal ultrasound of the kidneys and bladder. Indication: Renal cyst Comparison: CT dated 05/07/2020 Findings: Renal echotexture is normal bilaterally without hydronephrosis or renal calculus. There are right renal cysts, largest measuring 5.5 cm. The right kidney measures cm and left kidney measures c m. Bladder within normal limits. Impression: 1: Right renal cysts. Reviewed, dictated and finalized at location A. Impression: 1: Right renal cysts.
== END ==
PROVIDERS: PCP Internal Medicine; Visit Provider Urology
DX: N28.1 Cyst of kidney, acquired (principal)
CPT/HCPCS: 76770

== ENCOUNTER → 2021-03-27 00:37 | Outpatient (CLI) | payer BC, SELFPAY ==
[2021-03-27 18:08] LABS: SARS-CoV-2 RNA PCR Negative
== END ==
PROVIDERS: PCP Internal Medicine; Visit Provider Internal Medicine Gastroenterology
DX: Z01.812 Encounter for preprocedural laboratory examination (principal); Z20.822 Contact with and (suspected) exposure to COVID-19
CPT/HCPCS: C9803; U0003; U0005

== ENCOUNTER 2021-04-26 10:35 | Outpatient (CLI) | payer BC, SELFPAY ==
--- NOTE | ~2021-04-26 | XR_ITS ---
EXAMINATION: XR UGIAC w barium swallow DATE: 04/26/2021 11:30 INDICATION: Epigastric pain with burning TECHNIQUE: The patient drank thick barium, gas-producing crystals, and thin barium. Fluoroscopic spot radiographs of the hypopharynx, esophagus, stomach and proximal small bowel were obtained. A total o f 1442 fluoroscopic images were obtained. Fluoroscopy exposure time was 2.2 minutes. Total DAP was 18 .41 mGycm^2 COMPARISON: None. FINDINGS: The pharynx is symmetric and without evidence of mass lesion or mucosal irregularity. The esophagus i s normal without mass or stricture. Esophageal motility is normal. There is no hiatal hernia. There w as a single episode of gastroesophageal reflux of a large amount of contrast extending into the upper thoracic esophagus. The stomach and proximal small bowel are normal. IMPRESSION: 1. Single episode of gastroesophageal reflux of a large amount of contrast with provocative maneuvers . Reviewed, dictated and finalized at location A. IMPRESSION: 1. Single episode of gastroesophageal reflux of a large amount of contrast with provocative maneuvers.
== END 2021-04-26 10:36 | disposition home or self-care (01) ==
PROVIDERS: PCP Internal Medicine; Visit Provider Nurse Practitioner
DX: R10.13 Epigastric pain (principal); K21.9 Gastro-esophageal reflux disease without esophagitis
CPT/HCPCS: 74246

== ENCOUNTER 2021-05-12 08:46 | Outpatient (CLI) | payer BC, SELFPAY ==
--- NOTE | 2021-05-12 08:50 | EST_ITS ---
Patient Info Name: Angela Khan Age: 60 years : 1960 Gender: Female Accession #: $[id number]$ Ht: 66 in Wt: 185 lbs BSA: 2.00 m2 HR: 70 bpm BP: 137 / 86 mmHg Heart Rhythm: Sinus Rhythm Exam Date: 05/12/2021 10:00 AM Exam Location: [facility] Stress Admit Date: 05/12/2021 Staff Ordering Physician: CHEMA DANIEL NP Medical Genetics Director: Emma Kennedy CT Referring Physician: MAYRA BERRY MD; Exercise Physician: Clinton Kinsey DO Exam Type: CA stress echo Study Info Indications R07.89 - Other chest pain Treadmill exercise stress echocardiogram is performed. Summary 1. 1. Negative Sage exercise stress test for ischemic ST changes by ECG criteria. 2. 2. Good functional capacity, achieving 10 METs of workload. 3. 3. Appropriate HR response to exercise. 4. 4. Appropriate HR recovery at 1 minute post exercise. 5. 5. Negative stress echocardiogram for ischemia by wall motion analysis. 6. 6. Patient informed of the above results. Stress Echo Findings Left Ventricle Appropriate increase in LV endocardial thickening with systole. Appropriate augmentation of contractility with systole. No wall motion abnormality. Left Ventricle Normal LV systolic function, no wall motion abnormality. Protocol: Sage Rest HR: 70 bpm Peak HR: 137 bpm Rest Sys BP: 131 mmHg Peak Sys BP: 203 mmHg Max Pred HR: 161 bpm % Max Pred HR: 85 % Target HR: 137 bpm Max RPP: 27,811 bpm*mmHg Termination Reason: Reached target heart rate or workload Max ST Seg Deviation: -2.00 mm Total Time: 9 min : 0 sec Rest Edwards BP: 86 mmHg Peak Edwards BP: 83 mmHg Total METS: 10.3 Resting ECG Sinus rhythm. Stress ECG No ST changes. Arrhythmias None. Report Signatures Stress ECG Echo
== END 2021-05-12 08:47 | disposition home or self-care (01) ==
LOC: ANHCARD 08:47
PROVIDERS: PCP Internal Medicine; Visit Provider Nurse Practitioner
DX: R07.89 Other chest pain (principal)
CPT/HCPCS: 93351

== ENCOUNTER → 2022-06-15 16:13 | Outpatient (CLI) | payer BC, SELFPAY ==
--- NOTE | ~2022-06-15 | XR_ITS ---
XR_[id number]_CR DATE: 06/15/2022 16:35 INDICATION: Neck pain TECHNIQUE: AP, open-mouth, lateral views COMPARISON: None FINDINGS: There is straightening of the cervical spine. C1 and C2 are normally aligned and the odontoid process is intact. No fracture or dislocation or lock ed facet or prevertebral soft tissue swelling. There is slight anterolisthesis at C2-3. There is moderate degenerative disease at C4-5. Moderately severe degenerative disease at C5-6 and C6-7 with posterior spurring at each of these leve ls. Degenerative change at the apophyseal joints. There is uncovertebral joint spurring of prominent degr ee at C4-5, C5-6 and C6-7. IMPRESSION: Straightening of the cervical spine Multilevel degenerative disc disease Degenerative changes apophyseal and mid and lower uncovertebral joints Reviewed, dictated and finalized at Location [facility]. Reviewed, dictated and finalized at location B. E WORKER HELPER
== END ==
PROVIDERS: PCP Internal Medicine; Visit Provider Internal Medicine
DX: M50.30 Other cervical disc degeneration, unspecified cervical region (principal)
CPT/HCPCS: 72040

== ENCOUNTER 2022-07-07 06:56 | Outpatient (RCR) | payer BC, SELFPAY ==
--- NOTE | 2022-07-07 14:29 | PCPTNOTE ---
Patient did not show up for scheduled initial evaluation this date.
== END 2022-10-05 23:59 | disposition home or self-care (01) ==
LOC: ANHGOSHPT 06:56
PROVIDERS: PCP Internal Medicine; Visit Provider Internal Medicine
DX: M54.2 Cervicalgia (principal)
CPT/HCPCS: 99199

== ENCOUNTER 2022-09-19 16:33 | Emergency (ER) | payer BC, SELFPAY ==
--- NOTE | ~2022-09-19 | XR_ITS ---
EXAMINATION: XR chest 2V DATE: 09/19/2022 17:14 INDICATION: Lower posterolateral right chest pain TECHNIQUE: frontal and lateral views of the chest were obtained. COMPARISON: Chest radiograph dated 05/07/2020 FINDINGS: The lungs remain clear with no focal airspace opacities, pulmonary edema, pleural effusion or pneumot horax. The cardiomediastinal silhouette is normal. Mild thoracic spondylosis. IMPRESSION: 1. No acute cardiopulmonary disease. Reviewed, dictated and finalized at location B.
--- NOTE | 2022-09-19 16:39 | ED.GENADULT ---
HPI - General Adult General Chief complaint: Back Pain/Injury Stated complaint: stomach/back pain Source: patient and RN notes reviewed History of Present Illness HPI narrative: 61 yo F presents to urgent care with complaints of right thoracic back pain that radiates to the front, along her bra line. Pt states the pain started yesterday morning when she woke up. Pt reports vacuuming Monday and Monday and thought it could be from that. Pt states she was a little SOB yesterday but nothing today. Pt denies any fevers, chills, rash, chest pain, leg pain or swelling, or abdominal pain. Pt attempted placing a heating pad to her back with minimal relief. Related Data Home Medications Medication Instructions Recorded Confirmed Complete [place]aben 1 cap PO DAILY 08/19/21 09/19/22 Vitamin D3 And K1 And K2 1 cap PO DAILY 08/19/21 09/19/22 ascorbic acid (vitamin C) 500 mg 1,000 mg PO DAILY 08/19/21 09/19/22 chewable tablet (Vitamin C) magnesium citrate 165 mg PO DAILY 08/19/21 09/19/22 zinc 30 mg PO DAILY 08/19/21 09/19/22 vit C 65 mg-D3 3.15 mcg-vit E 3.35 1 tablet PO DAILY 09/19/22 09/19/22 mg-zinc 1 mg-elderberry chew tablet (Airborne Vits Zinc Elderberry) Allergies Allergy/AdvReac Type Severity Reaction Status Date / Time Penicillins Allergy Unknown Rash Verified 09/19/22 16:46 venom-wasp Allergy Unknown Swelling Verified 09/19/22 16:46 Review of Systems Review of Systems: CONSTITUTIONAL: Denies fever, chills, or sweats. EYES: Denies visual changes, redness, or discharge. ENT: Denies otalgia and sore throat CARDIOVASCULAR: Denies chest pain, palpitations, or edema. RESPIRATORY: Denies cough or dyspnea. GASTROINTESTINAL: Denies abdominal pain, nausea, vomiting, or diarrhea. GENITOURINARY: Denies dysuria or hematuria. SKIN: Denies rash or itching. MUSCULOSKELETAL: right sided back pain NEUROLOGIC: Denies headache, numbness, or weakness. [facility] Past Medical History Medical History (Updated 09/19/22 @ 17:29 by Silva Soto, TRAFFIC CONTROL FLAGGER) Abdominal pain, epigastric Acute cholecystitis (~05/06/20) Biliary colic Chest pain Cholelithiasis and acute cholecystitis with obstruction Gallbladder polyp Gastric polyp Heartburn symptom Hepatic steatosis History of asthma History of depression History of hypertension Hx of cholelithiasis (Unknown) Hypercholesterolemia Non-compliance with treatment Sciatica associated with disorder of lumbar spine Surgical History Surgical History History of section History of tonsillectomy Family History Family History Mother Family history of thyroid disease Hypertension Sibling Hypertension Grandparent Family history of heart disease in male family member before age 55 Family history of malignant neoplasm of breast Family history of malignant neoplasm of breast in first degree relative Family history of malignant neoplasm of uterus Family history of dementia Family history of pulmonary embolism Father Hypertension Other Asthma Family history of arthritis Family history of cardiovascular disease Social History Social History Smoking packs per day: 1 Smoking cigarettes per day: 20.0 Years smoked: 5 Smoking pack-years: 5.00 Smoking status: Unknown if ever smoked Tobacco type: cigarettes Second hand tobacco smoke exposure: No Smoking end date: 07/10/87 Alcohol intake: never Substance use: never Substance use type: does not use Other substance usage details: CBD Chews Lack of Transportation: No Lack of Food: Never True Current Housing: I Have Housing Concerned About Future Housing: No Difficulty Paying Gas/Electric Bills: No Difficulty Paying for Meds: No Currently Unemployed: No Education: Bachelor's Degree Difficulty w/ Childcare or Family Care: No
[2022-09-19 16:59] VITALS: BP 145/87; PULSE 69; RESP 16; TEMP 36.7; O2SAT 97
== END 2022-09-19 17:39 | disposition home or self-care (01) ==
PROVIDERS: Emergency Provider Nurse Practitioner Family
DX: S29.012A Strain of muscle and tendon of back wall of thorax, initial encounter (principal); X58.XXXA Exposure to other specified factors, initial encounter; J45.909 Unspecified asthma, uncomplicated; E78.00 Pure hypercholesterolemia, unspecified; I10 Essential (primary) hypertension; Z87.891 Personal history of nicotine dependence
CPT/HCPCS: 71046; 99213; G0463

== ENCOUNTER 2023-10-19 13:59 | Emergency (ER) | payer BC, SELFPAY ==
[2023-10-19 14:23] VITALS: BP 150/96; PULSE 64; RESP 21; TEMP 37; O2SAT 100
--- NOTE | 2023-10-19 14:58 | ED.GENADULT ---
HPI - General Adult General Chief complaint: Skin/Abscess/Foreign Body Stated complaint: wrist cyst Time Seen by Provider: 10/19/23 14:24 History of Present Illness HPI narrative: Patient is a 62-year-old female who presents ER with bruising to her ganglion cyst of the left wrist. Just noticed the bruising /feeling today. No fevers or chills. No redness. It is nontender. No known trauma. Related Data Home Medications Medication Instructions Recorded Confirmed Complete Cadet 1 cap PO DAILY 08/19/21 09/18/23 Vitamin D3 And K1 And K2 1 cap PO DAILY 08/19/21 09/18/23 ascorbic acid (vitamin C) 500 mg 1,000 mg PO DAILY 08/19/21 09/18/23 chewable tablet (Vitamin C) magnesium citrate 165 mg PO DAILY 08/19/21 09/18/23 zinc 30 mg PO DAILY 08/19/21 09/18/23 vit C 65 mg-D3 3.15 mcg-vit E 3.35 1 tablet PO DAILY 09/19/22 09/18/23 mg-zinc 1 mg-elderberry chew tablet (Airborne Vits Zinc Elderberry) Allergies Allergy/AdvReac Type Severity Reaction Status Date / Time Penicillins Allergy Unknown Rash Verified 09/18/23 13:41 venom-wasp Allergy Unknown Swelling Verified 09/18/23 13:41 Review of Systems Constitutional: Constitutional: Reports no additional constitutional complaints Musculoskeletal: Musculoskeletal: Denies arthralgias, Denies joint swelling and Denies muscle cramps Integumentary/Breasts: Skin/Breast: Denies erythema, Denies rash and Denies skin ulcer Comments: Bruising or ganglion cyst Neurologic: Denies focal weakness and Denies numbness [facility] Past Medical History Medical History (Updated 10/19/23 @ 15:01 by Ab Pastrana MD) Abdominal pain, epigastric Acute cholecystitis (~05/06/20) Biliary colic Chest pain Cholelithiasis and acute cholecystitis with obstruction Gallbladder polyp Gastric polyp Heartburn symptom Hepatic steatosis History of asthma History of depression History of hypertension Hx of cholelithiasis (Unknown) Hypercholesterolemia Non-compliance with treatment Sciatica associated with disorder of lumbar spine Surgical History Surgical History History of section History of tonsillectomy Family History Family History Mother Family history of thyroid disease Hypertension Sibling Hypertension Grandparent Family history of heart disease in male family member before age 55 Family history of malignant neoplasm of breast Family history of malignant neoplasm of breast in first degree relative Family history of malignant neoplasm of uterus Family history of dementia Family history of pulmonary embolism Father Hypertension Other Asthma Family history of arthritis Family history of cardiovascular disease Social History Social History Smoking packs per day: 1 Smoking cigarettes per day: 20.0 Years smoked: 5 Smoking pack-years: 5.00 Smoking status: Unknown if ever smoked Tobacco type: cigarettes Second hand tobacco smoke exposure: No Smoking end date: 07/10/87 Alcohol intake: never Substance use: never Substance use type: does not use Other substance usage details: CBD Chews Lack of Transportation: No Lack of Food: Never True Current Housing: I Have Housing Concerned About Future Housing: No Difficulty Paying Gas/Electric Bills: No Difficulty Paying for Meds: No Currently Unemployed: No Education: Bachelor's Degree Difficulty w/ Childcare or Family Care: No Living arrangements: with family Additional living arrangements comments: , Daughter Gender identity (if verbalized by the patient): Female Spiritual care concerns: No Exam Narrative: GENERAL: Well-appearing, well-nourished, and in no acute distress. HEAD: Normocephalic, atraumatic. ENT: Mucous membranes moist. HEART: Regular rate and rhythm. Normal perip
[2023-10-19 15:10] VITALS: BP 151/89; PULSE 89; RESP 16; TEMP 36.9; O2SAT 100
== END 2023-10-19 15:08 | disposition home or self-care (01) ==
PROVIDERS: Emergency Provider Emergency Medicine; PCP Family Medicine
DX: M67.432 Ganglion, left wrist (principal); J45.909 Unspecified asthma, uncomplicated; I10 Essential (primary) hypertension; E78.00 Pure hypercholesterolemia, unspecified; Z87.891 Personal history of nicotine dependence
CPT/HCPCS: 99281

== ENCOUNTER 2024-03-19 14:38 | Outpatient (CLI) | payer BC, SELFPAY ==
--- NOTE | ~2024-03-19 | MM_ITS ---
EXAMINATION: MM screening luís BI w deric HISTORY: Screening mammogram TECHNIQUE: Craniocaudal and mediolateral oblique 3-D tomosynthesis images were obtained and synthetic 2-D images were generated. CAD analysis was submitted and interpreted. COMPARISON: 11/13/2020, 06/19/2019 BREAST PARENCHYMAL COMPOSITION:Not Dense. The breasts are almost entirely fatty FINDINGS: No suspicious mass, calcification, or architectural distortion are identified in either donn ast to suggest malignancy. There has been no suspicious interval change. IMPRESSION: No mammographic evidence of malignancy. Recommend routine screening mammography in one year. BI-RADS Category 1: Negative Reviewed, dictated and finalized at location .
--- NOTE | ~2024-03-19 | DEXA_ITS ---
Bone Density Report Name: YOMI CHRISTENSEN Age: 63 Sex: Female Ethnicity: White Date of : 1960 Indication: postmenopausal; screening for osteoporosis; height loss; history of glucocorticoids; Referring Provider: KULDEEP, DEANN Portillo Study: Bone densitometry was performed. Exam Date: March 19, 2024 Accession number: [id number] Bone Density: Region BMD T-score Z-score Classification AP Spine(L1-L4) 1.106 0.5 2.1 Normal Femoral Neck (Left) 0.725 -1.1 0.3 Osteopenia Total Hip (Left) 0.947 0.0 1.1 Normal Femoral Neck (Right) 0.652 -1.8 -0.4 Osteopenia Total Hip (Right) 0.907 -0.3 0.8 Normal Total Hip Mean 0.927 -0.2 1.0 Normal World Health Organization criteria for BMD impression classify patients as: Normal (T-score at or above -1.0), Osteopenia (T-score between -1.0 and -2.5), or Osteoporosis (T-score at or below -2.5). 10-year Fracture Risk(1): Major Osteoporotic Fracture 14% Hip Fracture 1.6% Reported Risk Factors: [place] (), Neck BMD=0.652, BMI=33.2, glucocorticoids (1) FRAX(R) Version 3.08. Fracture probability calculated for an untreated patient. Fracture probability may be lower if the patient has received treatment. Clinical Information Provided by Patient: Has taken Glucocorticoids Patient maximum height was 67 Menopause Age: 51 No regular weight bearing exercise Drinks caffeinated beverages Onset of menses at age 14 Number of children 2 Impression: The patient has low bone mass, based on the Right Femoral Neck T-score. The patient has an estimated ten-year risk of hip fracture of 1.6% and an estimated ten-year risk of major fracture of 14%, based on the WHO FRAX algorithm. The patient has risk factors, including: history of glucocorticoid therapy. Discussion: BONE DENSITY IS LOW AT ONE OR MORE SKELETAL SITES. This patient's lowest T-score is low at one or more skeletal sites. It meets the World Health Organization's (WHO) criteria for ?low bone mass? (T-score between -1.0 and -2.5). The patient's 10-year risk of fracture as calculated by FRAX is less than the threshold where pharmacological therapy is recommended by the National Osteoporosis Foundation (NOF). However, all treatment decisions require clinical judgment and consideration of individual patient factors, including patient preferences, comorbidities, previous drug use, risk factors not captured in the FRAX model (e.g., frailty, falls, vitamin D deficiency, increased bone turnover, interval significant decline in bone density) and possible under or overestimation of fracture risk by FRAX. The patient should follow a healthful lifestyle (good nutrition with adequate calcium and vitamin D, and appropriate weight-bearing exercise). Follow-Up: Consider repeating this study in 2 to 3 years to
== END 2024-03-19 14:39 | disposition home or self-care (01) ==
PROVIDERS: PCP Family Medicine; Visit Provider Nurse Practitioner
DX: Z12.31 Encounter for screening mammogram for malignant neoplasm of breast (principal); M85.89 Other specified disorders of bone density and structure, multiple sites; Z13.820 Encounter for screening for osteoporosis
CPT/HCPCS: 77063; 77067; 77080

== ENCOUNTER 2025-07-05 14:25 | Emergency (ER) | payer BC, SELFPAY ==
[2025-07-05 14:41] VITALS: BP 140/84; PULSE 88; RESP 16; TEMP 37.1; O2SAT 98
--- NOTE | 2025-07-05 15:05 | ED.URI ---
HPI - URI/Sore Throat General Chief Complaint: Upper Respiratory Infection Stated Complaint: URI Symptoms Time Seen by Provider: 07/05/25 15:05 Source: patient and RN notes reviewed Mode of arrival: ambulatory Limitations: no limitations History of Present Illness HPI Narrative: 64-year-old female presented for complaint of cough, nasal drainage, sore throat, ear pressure and fatigue. Says symptoms are moving to chest. Symptoms worsening over the past week. Endorses losing her voice intermittently along with intermittent fever and chills. Denies sob, wheezing, n/v/d. MD elicited complaint: cough Related Data Home Medications ?Medication ?Instructions ?Recorded ?Confirmed ?Last Taken ?Type Vitamin D3 And K1 And K2 1 cap PO DAILY 08/19/21 12/18/23 Unknown History magnesium citrate 165 mg PO DAILY 08/19/21 12/18/23 Unknown History vit C 65 mg-D3 3.15 mcg-vit E 3.35 1 tablet PO DAILY 09/19/22 12/18/23 Unknown History mg-zinc 1 mg-elderberry chew tablet (Airborne Vits Zinc Elderberry) Complete [place] 1 cap PO DAILY PRN 11/08/23 12/18/23 Unknown History ascorbic acid (vitamin C) 500 mg 1,000 mg PO DAILY PRN 11/08/23 12/18/23 Unknown History chewable tablet (Vitamin C) Allergies Allergy/AdvReac Type Severity Reaction Status Date / Time Penicillins Allergy Unknown Rash Verified 07/05/25 14:57 venom-wasp Allergy Unknown Swelling Verified 07/05/25 14:57 Review of Systems Review of Systems: per HPI [facility] Past Medical History Medical History Heartburn symptom Chest pain Cholelithiasis and acute cholecystitis with obstruction Abdominal pain, epigastric Acute cholecystitis (~05/06/20) Biliary colic Gallbladder polyp Gastric polyp Hepatic steatosis Hx of cholelithiasis (Unknown) Hypercholesterolemia Non-compliance with treatment Sciatica associated with disorder of lumbar spine History of depression History of hypertension History of asthma Surgical History Surgical History History of section History of tonsillectomy Family History Family History Mother Family history of thyroid disease Hypertension Sibling Hypertension Grandparent Family history of heart disease in male family member before age 55 Family history of malignant neoplasm of breast Family history of malignant neoplasm of breast in first degree relative Family history of malignant neoplasm of uterus Family history of dementia Family history of pulmonary embolism Father Hypertension Other Asthma Family history of arthritis Family history of cardiovascular disease Social History Social History Smoking packs per day: 1 Smoking cigarettes per day: 20.0 Years smoked: 5 Smoking pack-years: 5.00 Smoking status: Unknown if ever smoked Tobacco type: cigarettes Second hand tobacco smoke exposure: No Smoking end date: 07/10/87 Alcohol intake: never Substance use: never Substance use type: does not use Other substance usage details: CBD Chews Lack of Transportation: No Lack of Food: Never True Current Housing: I Have Housing Concerned About Future Housing: No Difficulty Paying Gas/Electric Bills: No Difficulty Paying for Meds: No Currently Unemployed: No Education: Bachelor's Degree Difficulty w/ Childcare or Family Care: No Living arrangements: with family Additional living arrangements comments: , Daughter Gender identity (if verbalized by the patient): Female Spiritual care concerns: No Exam Narrative: GENERAL: mildly Ill-appearing, nontoxic no acute distress. EYES: conjunctivae clear ENT: Mucous membranes moist. TM pearly bowers with dull light reflex bilaterally; no tragal tenderness. Oropharynx not erythematous without lesions or exudate, no drooling, no hoarseness, no trismus, uvula midline. No tripod positioning, muffled voice, soft palate or pharyngeal wall bulging NECK: Supple. No lymphadenopathy CHEST: Clear to auscultation, breath sounds equal. No wheezing, rhonchi, rales, or stridor. No respiratory distress, speaks in full sentences. HEART: Regular rate and rhythm. No murmur heard. SKIN: Warm, dry, no rash. NEURO: Alert and oriented x3. PSYCH: Normal mood and affect Course Course Level of Care: Express Care Visit Vital Signs Vital signs: Vital Signs Temperature 98.8 F 07/05/25 14:41 Pulse Rate 88 07/05/25 14:41 Respiratory Rate 16 07/05/25 14:41 Blood Pressure 140/84 07/05/25 14:41 Pulse Oximetry 98 07/05/25 14:41 Temperature 98.8 F 07/05/25 14:41 Pulse Rate 88 07/05/25 14:41 Respiratory Rate 16 07/05/25 14:41 Blood Pressure 140/84 07/05/25 14:41 Pulse Oximetry 98 07/05/25 14:41 MDM MDM Narrative Medical decision making narrative: Discussed physical exam findings and reviewed RX. Advised supportive measures and signs/symptoms to go to the ER. Pt is appropriate for outpt treatment and f/u. Differential Diagnosis Differential Diagnosis: Influenza, covid, sinusitis, OM, strep pharyngitis, URI Discharge Plan Discharge Clinical Impression: Bronchitis Patient Disposition: Home Condition: Stable Instructions: Acute Bronchitis (ED) Additional Instructions: Take medication as directed Recommend Flonase spray and Zyrtec (or Claritin/Cleo) over the counter Cough syrup may cause drowsiness; avoid driving or take it at night time. Tylenol every 8 hours as needed for pain Symptomatic treatment includes: rest, fluids, and increase humidity of the air at home. Follow up with your primary care provider as needed in 1 week Go to the ER for worsening symptoms or concerns Patient Language: Pakistani Prescriptions: New prednisone 20 mg tablet 40 mg PO DAILY 5 Days Qty: 10 0RF azithromycin [Zithromax Z-Dereck] 250 mg tablet See Rx Instructions .ROUTE .COMPLEX Qty: 6 0RF Rx Instructions: For 250 mg dose pack: take 500 mg today (day 1), then 250 mg for 4 days (days 2-5) No Action Airborne Vits Zinc Elderberry 65 mg-3.15 mcg- 3.35 mg-1 mg Tablet,Chewable 1 tablet PO DAILY omeprazole 40 mg capsule,delayed release(DR/EC) 40 mg PO DAILY Qty: 30 1RF Vitamin D3 And K1 And K2 1 cap PO DAILY magnesium citrate 165 mg PO DAILY Complete [place] 1 cap PO DAILY PRN ascorbic acid (vitamin C) [Vitamin C] 500 mg tablet,chewable 1,000 mg PO DAILY PRN atenolol 25 mg tablet 25 mg PO DAILY Qty: 90 1RF hydrochlorothiazide 12.5 mg tablet 12.5 mg PO DAILY Qty: 90 1RF Follow-up/Referrals: Alberto Narayanan MD [Primary Care Provider, Family Practice] Time of Disposition: 15:14
== END 2025-07-05 15:19 | disposition home or self-care (01) ==
PROVIDERS: Emergency Provider Nurse Practitioner Family; PCP Family Medicine
DX: J40 Bronchitis, not specified as acute or chronic (principal); E78.00 Pure hypercholesterolemia, unspecified; I10 Essential (primary) hypertension; J45.909 Unspecified asthma, uncomplicated; K76.0 Fatty (change of) liver, not elsewhere classified; Z87.891 Personal history of nicotine dependence
CPT/HCPCS: 99213; G0463